=== PATIENT | female | born 1990 | race Caucasian/White ===

== ENCOUNTER 2023-06-25 10:21 | Emergency (ER) | payer MEDICAID ==
[~2023-06-25] VITALS: Ht 175.3 cm; Wt 113.0 kg
[2023-06-25 10:32] VITALS: O2SAT 100
[2023-06-25 12:10] LABS: CLARITY URINE CLEAR (CLEAR); COLOR URINE YELLOW (YELLOW); GLUCOSE URINE NEGATIVE (NEGATIVE); KETONES URINE NEGATIVE (NEGATIVE); LEUKOCYTE ESTERASE URINE 1+ (NEGATIVE); NITRITE URINE NEGATIVE (NEGATIVE); OCCULT BLOOD URINE 3+ (NEGATIVE); PROTEIN URINE TRACE (NEGATIVE); UROBILINOGEN URINE 0.2 E.U./dL (0.2-1.0)
[2023-06-25 12:37] LABS: BASOPHILS % 0.5 % (0.0-2.0); EOSINOPHILS % 2.5 % (0.0-5.0); HEMATOCRIT. 38.4 % (36.0-48.0); LYMPHOCYTES % 23.3 % (20.0-50.0); MEAN CORPUSCULAR HEMOGLOBIN 29.5 pg (28.0-32.0); MEAN CORPUSCULAR VOLUME 86.6 fL (81.0-99.0); MEAN PLATELET VOLUME 8.4 fl (7.4-10.4); MONOCYTES % 7.7 % (2.0-8.0); PLATELET 264 x1000/uL (130-400); RED BLOOD CELL COUNT 4.43 mill/uL (4.2-5.4); RED CELL DISTRIBUTION WIDTH 12.9 % (11.6-14.6); WHITE BLOOD COUNT 8.9 x1000/uL (4.5-11.0)
[2023-06-25 12:44] LABS: MUCUS URINE TRACE /lpf (< = 2+); SQUAMOUS EPITHELIAL CELL URINE 3+ /lpf (RARE/1+)
[2023-06-25 12:45] LABS: BACTERIA URINE 1+; RBC URINE 0-2 /hpf (0-2)
[2023-06-25 12:53] LABS: ALANINE AMINOTRANSFERASE 13 IU/L (10-49); ASPARTATE AMINOTRANSFERASE 24 IU/L (<34); B-HCG QUANTITATIVE 62 mIU/mL (<3); BILIRUBIN TOTAL 0.3 mg/dL (0.1-1.0); CALCIUM 9.1 mg/dL (8.7-10.4); CARBON DIOXIDE 25 mEq/L (21-32); CHLORIDE 108 mEq/L (98-107); CREATININE 0.7 mg/dL (0.6-1.0); GLUCOSE 92 mg/dL (70-105); POTASSIUM 4.1 mEq/L (3.5-5.1); PROTEIN TOTAL 6.7 g/dL (6.0-8.3); SODIUM 139 mEq/L (136-145); UREA NITROGEN BLOOD 14 mg/dL (9-23)
[2023-06-25] MEDS ORDERED: CEPH500T MT (14:23)
[2023-06-25] MEDS ORDERED: IBUP-2030 MT (14:23)
[2023-06-25] MEDS: KETOROLAC 30MG/ML VIAL IM ONE (15:02)
[2023-06-25] MEDS: HYDROCODONE/ACETAMINOPHEN 5/325MG TABLET PO ONE (15:03)
[2023-06-25 15:05] VITALS: BP 145/94; PULSE 98; RESP 20; TEMP 98.6
== END 2023-06-25 15:59 | disposition home or self-care (01) ==
LOC: ER 10:21
DX: N39.0 Urinary tract infection, site not specified (principal)
CPT/HCPCS: 99285; 74176; 76830; 76856; 80053; 81003; 81025; 84702; 83690; 85025; 87086; 36415; 96372; J1885